=== PATIENT | female | born 1985 | race Caucasian/White ===

== ENCOUNTER 2018-11-06 20:29 | Emergency (ER) | payer SELFPAY ==
[~2018-11-06] VITALS: Ht 177.8 cm; Wt 61.2 kg
[2018-11-06 20:48] VITALS: BP 123/71
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
[2018-11-06] MEDS ORDERED: ROBAXIN500 MG PO (22:24)
[2018-11-06] MEDS ORDERED: IBUPROFEN600 MG ORAL (22:24)
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
[2018-11-06 22:31] VITALS: BP 123/71
--- NOTE | 2018-11-06 22:46 | NUR ---
ER DISCHARGE NOTE: Patient is cleared to be discharged per Dr. Lang. X-ray done. Meds given as ordered. Pt is aox4 on room air with stable vital signs. Pt was given dc and prescription instructions and was able to verbalize understanding. Pt ID band removed. Pt is able to ambulate with steady gait and took all belongings.
--- NOTE | 2018-11-07 09:55 | Diagnostic Imaging Report ---
Indication: Neck pain. Trauma Technique: Continuous helical imaging of the cervical spine was obtained transaxially from the skull base to the upper thoracic spine. 2-D coronal and sagittal reformatted images were obtained. Automatic Exposure Control was utilized. Total Dose length Product (DLP): 1624.[address] Dose Index Volume (CTDIvol): 70.38,11.06 mGy Comparison: None Findings: There is no evidence of an acute fracture. There is moderate reversal cervical lordosis which may be due to muscle spasm. Atlantoaxial alignment appears normal. Height and configuration of the vertebral bodies and intervertebral discs are within normal limits. Uncovertebral joints and facets are unremarkable. There is no soft tissue swelling. Impression: No acute fracture. Reversal of cervical lordosis may be due to muscle spasm The CT scanner at [facility] is accredited by the [employer] and the scans are performed using dose optimization techniques as appropriate to a performed exam including Automatic Exposure control.
--- NOTE | 2018-11-07 10:15 | Diagnostic Imaging Report ---
Indication: Headache and trauma Technique: Contiguous 5 mm thick transaxial imaging of the head obtained in a Siem[employer] Sensation [address] scanner. Soft tissue and bone windows generated. Automatic Exposure Control was utilized. Total Dose length Product (DLP): 1624.[address] Dose Index Volume (CTDIvol): 70.38,11.06 mGy Comparison: none Findings: There is some prominence of the cortical sulci within the frontal lobes bilaterally. This is unexpected given the age of the patient. The size and configuration of the cortical sulci, basal cisterns, and ventricles are otherwise within normal limits for age. There is no mass effect, midline shift, or edema identified. There is no evidence of acute hemorrhage or abnormal intra-axial or extra-axial fluid collections. The bones and soft tissues are unremarkable. Impression: No mass effect, edema or acute bleed. Mild bifrontal atrophy. Query remote trauma. Please correlate clinically The CT scanner at [facility] is accredited by the [employer] and the scans are performed using dose optimization techniques as appropriate to a performed exam including Automatic Exposure control.
== END 2018-11-06 22:31 | disposition home or self-care (01) ==
LOC: EMR 21:20
DX: S09.90XA Unspecified injury of head, initial encounter (principal); S16.1XXA Strain of muscle, fascia and tendon at neck level, initial encounter; S39.012A Strain of muscle, fascia and tendon of lower back, initial encounter; V43.62XA Car passenger injured in collision with other type car in traffic accident, initial encounter; Y92.9 Unspecified place or not applicable
CPT/HCPCS: 70450; 72125; 99284